=== PATIENT | female | born 1965 | race Caucasian/White ===

== ENCOUNTER 2018-03-28 19:35 | Emergency (ER) | payer OTHER ==
--- NOTE | 2018-03-28 21:23 | UC ---
Back Pain HPI - HPI Summary HPI Summary: 53 yo female slipped on ice 11/06/17 and landed on her back persistent LBP since then worse sitting/hyperextending no leg pain or paresthesias no bowel or bladder dysfunction - History of Current Complaint Chief Complaint: UCBackPain Stated Complaint: BACK INJURY Time Seen by Provider: 03/28/18 20:57 Hx Obtained From: Patient Hx Last Menstrual Period: 2-3 months ago Onset/Duration: Sudden Onset, Lasting Weeks Timing: Constant Severity Initially: Severe Severity Currently: Moderate Pain Intensity: 6 Pain Scale Used: 0-10 Numeric Back Pain: Is Discrete @ Character: Throbbing, Spasmodic Aggravating Factor(s): Other - sitting/hyperextending Alleviating Factor(s): Rest Associated Signs And Symptoms: Positive: Negative Full Body (No Head): 1 - pain - Allergies/Home Medications Allergies/Adverse Reactions: Allergies Allergy/AdvReac Type Severity Reaction Status Date / Time No Known Allergies Allergy Verified 03/28/18 19:43 PMH/Surg Hx/FS Hx/Imm Hx Previously Healthy: Yes - Surgical History Surgical History: Yes Surgery Procedure, Year, and Place: Ankle 04/11/13 - Family History Known Family History: Positive: Hypertension - Social History Alcohol Use: None Substance Use Type: None Smoking Status (MU): Never Smoked Tobacco Review of Systems Constitutional: Negative Skin: Negative Eyes: Negative ENT: Negative Respiratory: Negative Cardiovascular: Negative Gastrointestinal: Negative Genitourinary: Negative Motor: Negative Neurovascular: Negative Musculoskeletal: Arthralgia, Myalgia Neurological: Negative Psychological: Negative Is Patient Immunocompromised?: No All Other Systems Reviewed And Are Negative: Yes Physical Exam Triage Information Reviewed: Yes Appearance: Well-Appearing, No Pain Distress, Well-Nourished Vital Signs: Initial Vital Signs Temp 97.8 F 03/28/18 19:40 Pulse 82 03/28/18 19:40 Resp 12 03/28/18 19:40 BP 150/98 03/28/18 19:40 Pulse Ox 100 03/28/18 19:40 Eye Exam: Normal ENT: Positive: Hearing grossly normal. Negative: Nasal congestion, Nasal drainage, Trismus, Muffled voice, Hoarse voice Neck: Positive: Supple, Nontender, No Lymphadenopathy Respiratory: Positive: Lungs clear, Normal breath sounds, No respiratory distress, No accessory muscle use Cardiovascular: Positive: RRR, No Murmur Musculoskeletal: Positive: ROM Intact, No Edema, Other: - (-) slr Neurological: Positive: Alert Psychological Exam: Normal Skin Exam: Normal Diagnostics - Radiology No standard instances Xray Interpretation: No Acute Changes Radiology Interpretation Completed By: Radiologist Back Pain Course/Dx - Differential Dx/Diagnosis Provider Diagnoses: back injury/strain versus other Discharge - Sign-Out/Discharge Documenting (check all that apply): Discharge/Admit/Transfer - Discharge Plan Condition: Stable Disposition: HOME Patient Education Materials: Back Pain (ED) Referrals: Ruchi Jerez MD [Primary Care Provider] - 2 Weeks (if not better) Additional Instructions: PT consult - Billing Disposition and Condition Condition: STABLE Disposition: HOME
--- NOTE | 2018-03-28 21:34 | RAD ---
INDICATION: Back pain since a fall 2011 COMPARISON: None. TECHNIQUE: 5 views of the lumbar spine were obtained. FINDINGS: The vertebra are in normal alignment. No fracture is seen. Disc spaces appear maintained. IMPRESSION: No evidence of fracture or subluxation.
[2018-03-28 21:50] VITALS: BP 154/95
== END 2018-03-28 21:51 | disposition home or self-care (01) ==
LOC: UCEAST 19:35
DX: M54.5 Low back pain (principal)
CPT/HCPCS: 72110; 99211; G0463